=== PATIENT | male | born 1945 | race Caucasian/White ===

== ENCOUNTER → 2016-09-27 | Outpatient (CLI) | payer MEDICARE, BC ==
[~2016-09-27] MED LIST: CETIRIZINE; FISH OIL CONC1000 MG PO; FLEXERIL10 MG PO; GLUCOSAMINE/CHONDROI PO; OXYCODONE5 MG PO; PERCOCET 325 MG1 TA2 PO; TYLENOL 500MG500 MG PO; VITAMINS
== END ==
LOC: COL.RAD 08:39
DX: M25.512 Pain in left shoulder (principal)
CPT/HCPCS: J3301; Q9967

== ENCOUNTER → 2019-08-17 | Outpatient (CLI) | payer MEDICARE, BC | LOC: COL.RAD 08-13 14:15 | DX: M25.552 Pain in left hip (principal) | CPT/HCPCS: J3301; Q9967 ==

== ENCOUNTER → 2020-03-24 | Outpatient (CLI) | payer MEDICARE, BC | LOC: BHSO 10:57 | DX: F41.0 Panic disorder [episodic paroxysmal anxiety] (principal) ==